=== PATIENT | female | born 2000 | race Caucasian/White ===

== ENCOUNTER 2018-05-14 16:02 | Emergency (ER) | payer OTHER ==
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
[2018-05-14 18:44] VITALS: BP 117/64; PULSE 102; RESP 18; TEMP 98.3
== END 2018-05-14 18:30 | disposition home or self-care (01) ==
LOC: EC 16:02
DX: M25.571 Pain in right ankle and joints of right foot (principal); M79.604 Pain in right leg; Z88.0 Allergy status to penicillin; V49.59XA Passenger injured in collision with other motor vehicles in traffic accident, initial encounter; Y92.410 Unspecified street and highway as the place of occurrence of the external cause
CPT/HCPCS: 99284

== ENCOUNTER 2018-05-16 13:22 | Emergency (ER) | payer OTHER ==
[2018-05-16 13:37] VITALS: BP 123/72; PULSE 60; RESP 18; TEMP 97.5
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
== END 2018-05-16 14:28 | disposition home or self-care (01) ==
LOC: EC 13:22
DX: S39.012A Strain of muscle, fascia and tendon of lower back, initial encounter (principal); Z88.0 Allergy status to penicillin; Z53.20 Procedure and treatment not carried out because of patient's decision for unspecified reasons; V49.9XXA Car occupant (driver) (passenger) injured in unspecified traffic accident, initial encounter
CPT/HCPCS: 99283